=== PATIENT | male | born 1985 | race Caucasian/White ===

== ENCOUNTER 2025-06-02 03:44 | Emergency (ER) | payer OTHER, SELFPAY ==
[2025-06-02] VITALS (15 sets, daily range): BP systolic 148–183; BP diastolic 85–102; PULSE 54–78; TEMP 37.1; O2SAT 96–100
--- NOTE | 2025-06-02 03:52 | ECG_ITS ---
[facility] Test Date: 2025-06-02 Pat Name: JOSE ROSARIO Department: Room: - Gender: Male [employer]: : 1985 Requested By: [id number] Order Number: [id number] Reading MD: ADRI GOMEZ Measurements Intervals [place] Rate: 74 P: 61 AL: 166 QRS: 52 QRSD: 92 T: 28 QT: 376 QTc: 404 Interpretive Statements 1100 Sinus rhythm 2420 RSR (QR) in lead V1/V2, consistent with right ventricular conduction delay 9130 borderline ECG No previous ECG available for comparison Electronically Signed On 06-02-2025 17:53:45 EDT by ADRI GOMEZ
--- NOTE | 2025-06-02 04:00 | ED.ABDPAIN1 ---
HPI - Abdominal Pain General Chief Complaint: Abdominal Pain Stated Complaint: SEVERE ABDOMINAL PAIN Time Seen by Provider: 06/02/25 03:44 Source: patient Mode of arrival: Wheelchair History of Present Illness HPI narrative: This 39-year-old male presents for evaluation of right upper quadrant abdominal pain that radiates up into his chest. The patient states the symptoms started around 11:30 PM. He thought it was something he ate so he has been walking around trying to walk it off. He is nauseated but has not been able to vomit. He has not had any diarrhea. Upon arrival he is bending over the counter at registration and diffusely diaphoretic. He states he has had kidney stones in the past but this is not similar to kidney stone pain. Related Data Allergies Allergy/AdvReac Type Severity Reaction Status Date / Time meperidine (From Demerol) Allergy Unknown o Verified 06/02/25 03:57 Review of Systems ROS Status of ROS 10 or more systems reviewed and unremarkable except as noted in history and below [facility] Medical History (Updated 06/02/25 @ 06:58 by Liane Trujillo MD) Kidney stone ?N20.0 - Calculus of kidney (ICD-10) Heart attack ?I21.9 - Acute myocardial infarction, unspecified (ICD-10) Surgical History (Updated 06/02/25 @ 03:58 by Nhan Reina) History of ankle surgery ?Z98.890 - Other specified postprocedural states (ICD-10) Exam Narrative Exam Narrative: Vital signs and Nursing Notes reviewed: Patient is afebrile with a normal pulse, blood pressure is elevated at 183/102 he is tachypneic with a respiratory of 22 and is not hypoxic with pulse ox of 100% on room air General: Awake, alert, oriented, comfortable appearing adult male, no respiratory distress HEENT: Normocephalic atraumatic, mucous membranes are moist and pink, eyes are clear, normal conjunctiva, vision is grossly intact, Chest: Lungs are clear to auscultation with good air entry, there is no wheezing rhonchi or rales appreciated no accessory muscle use, patient is speaking in complete sentences-no chest wall tenderness to palpation CVS: Regular rate and rhythm S1-S2, no murmurs rubs or gallops, pulses are brisk and equal bilaterally ABD: Soft, right upper quadrant and right lower quadrant tenderness with voluntary guarding, no pulsatile masses, no left upper quadrant or left lower quadrant tenderness to deep palpation Extremities: Moving all extremities, no lower extremity tenderness or swelling noted, negative Homans' sign, pulses are brisk and equal bilaterally Skin: Normal in appearance without rash,pallor, petechiae or purpura Neuro: No focal deficits Constitutional Vital Signs, click to edit/add: Last Vital Signs Temp 98.7 F 06/02/25 03:52 Pulse 59 L 06/02/25 05:30 Resp 16 06/02/25 05:30 BP 181/85 H 06/02/25 04:36 Pulse Ox 98 06/02/25 05:30 O2 Del Method Room Air 06/02/25 03:52 Course Vital Signs Vital signs: Vital Signs Pulse Rate 67 06/02/25 03:51 Respiratory Rate 19 06/02/25 03:51 Pulse Oximetry 100 06/02/25 03:51 Temperature 98.7 F 06/02/25 03:52 Pulse Rate 59 L 06/02/25 05:30 Respiratory Rate 16 06/02/25 05:30 Blood Pressure 181/85 H 06/02/25 04:36 Pulse Oximetry 98 06/02/25 05:30 Oxygen Delivery Method Room Air 06/02/25 03:52 MDM - Abdominal Pain MDM Narrative Medical decision making narrative: This 39-year-old male who works [place] the [employer] presents for evaluation of abdominal pain specifically in the right upper quadrant and right lower quadrant that radiates into his chest associated with nausea. The symptoms started earlier in the evening. The patient states he had a ham sandwich with mayonnaise, cucumbers and sour cream and fruit for dinner. He then developed abdominal pain. He thought it was gas and thought it would pass and has been in a severe amount of pain since it developed. He has had kidney stones in the past but states this is significantly different. Upon arrival he was pale, diaphoretic and hunched over the counter at registration. He was taken back to room 2. An IV was placed and he was medicated with IV Toradol, IV Dilaudid x 2 Zofran and IV fluids. EKG done upon arrival is a sinus rhythm at 74 bpm with a normal axis, interpretation somewhat limited by patient movement. Labs are reviewed. His white count is elevated at 14. He has a stable hemoglobin. Electrolytes, liver function test, lipase and troponin are all normal. CT scan of the abdomen pelvis was ordered and is pending at the end of my shift. He will be signed out to the oncoming physician pending CT scan results Lab Data Attestation: I reviewed the patient's lab results. Labs: Lab Results 06/02/25 Range/Units 03:55 WBC 14.0 H (4.0-11.0) 10^3/uL RBC 4.57 L (4.70-6.10) 10^6/uL Hgb 14.3 (14.0-18.0) g/dL Hct 41.8 L (42.0-54.0) % MCV 91.5 (80.0-94.0) fL MCH 31.3 (25.9-34.0) pg MCHC 34.2 (29.9-35.2) g/dL RDW 12.2 (11.0-15.0) % Plt Count 296 (150-450) 10^3/uL MPV 8.8 L (9.5-13.5) fL Neut % (Auto) 60.6 (43.0-75.0) % Lymph % (Auto) 26.9 (20.5-60.0) % [place] % (Auto) 10.0 (1.7-12.0) % Eos % (Auto) 1.5 (0.9-7.0) % Baso % (Auto) 0.4 (0.2-2.0) % Neut # (Auto) 8.5 H (1.4-6.5) 10^3/uL Lymph # (Auto) 3.8 (1.2-3.8) 10^3/uL [place] # (Auto) 1.4 H (0.3-0.8) 10^3/uL Eos # (Auto) 0.2 (0.0-0.7) 10^3/uL Baso # (Auto) 0.1 (0.0-0.1) 10^3/uL Abs Immat Gran (auto) 0.08 H (0.00-0.03) 10^3/uL Imm/Tot Granulo (auto) 0.6 H (0.0-0.5) % Sodium 141 (136-145) mmol/L Potassium 3.4 L (3.5-5.1) mmol/L Chloride 102 (98-107) mmol/L Carbon Dioxide 27.8 (21.0-32.0) mmol/L Anion Gap 14.6 BUN 19.0 H (7.0-18.0) mg/dL Creatinine 0.91 (0.70-1.30) mg/dL Est GFR ( Amer) >60 (>=60 mL/min/1.73m^2) Est GFR (Non-Af Amer) >60 (>=60 mL/min/1.73m^2) BUN/Creatinine Ratio 20.9 Glucose 110 H (74-106) mg/dL Lactate 2.2 H* (0.4-2.0) mmol/L Calcium 9.1 (8.5-10.1) mg/dL Total Bilirubin 0.2 (0.2-1.0) mg/dL AST 18 (15-37) U/L ALT 31 (16-63) U/L Alkaline Phosphatase 60 (46-116) U/L Troponin I High Sens 8.0 (4.0-76.1) pg/mL Total Protein 7.7 (6.4-8.2) g/dL Albumin 4.3 (3.4-5.0) g/dL Globulin 3.4 g/dL Albumin/Globulin Ratio 1.3 Lipase 42.0 (16.0-77.0) U/L ECG Data Attestation: I personally reviewed and interpreted this ECG as follows: (Sinus rhythm at 74 bpm with a normal axis and no acute changes) Discharge Plan Discharge Patient Disposition: Still a Patient
[2025-06-02 04:05] LABS: Hematocrit 41.8 % (42.0-54.0); Hemoglobin 14.3 g/dL (14.0-18.0); Immature Granulocytes Abs Auto 0.08 10^3/uL (0.00-0.03); Immature Granulocytes Pct Auto 0.6 % (0.0-0.5); Lymphocytes Absolute Auto 3.8 10^3/uL (1.2-3.8); Mean Corpuscular HGB Conc 34.2 g/dL (29.9-35.2); Mean Corpuscular Hemoglobin 31.3 pg (25.9-34.0); Mean Corpuscular Volume 91.5 fL (80.0-94.0); Platelet Count 296 10^3/uL (150-450); Red Blood Count 4.57 10^6/uL (4.70-6.10); White Blood Count 14.0 10^3/uL (4.0-11.0)
[2025-06-02 04:25] LABS: Alanine Aminotransferase 31 U/L (16-63); Albumin Globulin Ratio 1.3; Albumin Level 4.3 g/dL (3.4-5.0); Alkaline Phosphatase 60 U/L (46-116); Anion Gap 14.6; Aspartate Amino Transferase 18 U/L (15-37); Blood Urea Nitrogen 19.0 mg/dL (7.0-18.0); Calcium 9.1 mg/dL (8.5-10.1); Carbon Dioxide 27.8 mmol/L (21.0-32.0); Chloride 102 mmol/L (98-107); Estimated GFR (African America >60 (>=60 mL/min/1.73m^2); Estimated GFR (Non-African Ame >60 (>=60 mL/min/1.73m^2); Globulin 3.4 g/dL; Glucose 110 mg/dL (74-106); Lipase 42.0 U/L (16.0-77.0); Potassium 3.4 mmol/L (3.5-5.1); Sodium 141 mmol/L (136-145); Total Protein 7.7 g/dL (6.4-8.2)
[2025-06-02 04:27] LABS: Lactate/Lactic Acid 2.2 mmol/L (0.4-2.0)
[2025-06-02] MEDS: HYDROMORPHONE HCL 1 MG/ML CARTRIDGE IV ×2 (04:29→04:33)
[2025-06-02] MEDS: 0.9 % SODIUM CHLORIDE 1,000 ML 1000 ML IV (04:30)
[2025-06-02] MEDS: KETOROLAC TROMETHAMINE 30 MG/ML VIAL IVP (04:30)
--- NOTE | 2025-06-02 04:38 | CT_ITS ---
[address] [address] Patient Name: JOSE MORALES MRN: [id number] date: 1985 Sex: M Assigned Patient Location: ER Current Patient Location: [facility] Accession/Order Number: [id number] Exam Date: 06/02/2025 04:59 Report Date: 06/02/2025 08:19 At the request of: YI ERAZO MD Procedure: CT abdomen pelvis w con CT abdomen pelvis w con 06/02/2025 5:06 AM SIGNS AND SYMPTOMS: ^RUQ abd pain \S.br\ TECHNIQUE: Multidetector ct axial images of the abdomen and pelvis were obtained with IV contrast. Multiplanar reformats were performed and reviewed to further define anatomy and possible pathology. CT was performed with one or more of the following dose reduction techniques: Automated exposure control, adjustment of the mA and/or kV according to patient size, or use of iterative reconstruction technique. COMPARISON: None. FINDINGS: Lower Chest: Within normal limits. ABDOMEN: Liver: Within normal limits. Bile Ducts: Normal caliber. Gallbladder: There is a 1 cm stone near the neck of the gallbladder. The gallbladder is normal in size without pericholecystic edema to suggest acute cholecystitis. Pancreas: Within normal limits. Spleen: Within normal limits. Adrenals: Within normal limits. Kidneys: Within normal limits. Pelvis: Reproductive Organs: No pelvic masses. Ureters: Within normal limits. Bladder: Within normal limits. Bowel: Normal caliber. There is a normal appendix in the right lower quadrant. Mesenteric Lymph Nodes: No enlarged mesenteric lymph nodes. Peritoneum: No ascites or free air, no fluid collection. Vessels: within normal limits Retroperitoneum: Within normal limits. Abdominal Wall: Within normal limits. Bones: Degenerative changes are noted in the lower thoracic spine. Degenerative changes are noted in the lumbar spine. CT/CT abdomen pelvis w con IMPRESSION: There is a 1 cm stone near the neck of the gallbladder. The gallbladder is normal in size without pericholecystic edema to suggest acute cholecystitis. There is ongoing clinical concern, follow-up with right upper quadrant ultrasound and/or nuclear medicine hepatobiliary imaging may be helpful in Impression dictated by: Charli Restrepo M.D. 06/02/2025 8:19 AM Dictation Location: [place] [address] Electronically authenticated by: [id number] Y Date: 06/02/2025 08:19
[2025-06-02 06:52] LABS: Glucose Urine UA NEGATIVE (NEGATIVE)
[2025-06-02 07:06] LABS: Cast Seen? NONE SEEN #/LPF (NONE SEEN); Crystals Seen? None Seen #/HPF (None Seen)
[2025-06-02 07:14] LABS: Lactate/Lactic Acid 1.7 mmol/L (0.4-2.0)
[2025-06-02] MEDS: OXYCODONE HCL/ACETAMINOPHEN 5MG/325MG 1 TAB PO (08:52)
[2025-06-02] MEDS: ONDANSETRON 4 MG RAPDIS TABLET SL (08:52)
== END 2025-06-02 09:00 | disposition home or self-care (01) ==
PROVIDERS: Emergency Medicine; Emergency Provider Student in an Organized Health Care Education/Training Program
DX: K80.20 Calculus of gallbladder without cholecystitis without obstruction (principal); Z87.442 Personal history of urinary calculi
CPT/HCPCS: 36415; 74177; 80053; 81001; 83605; 83690; 84484; 85025; 93005; 96374; 96375; 99285; J1171; J1885; J2405; Q0162; Q9967